=== PATIENT | male | born 1985 | race Caucasian/White ===

== ENCOUNTER 2016-12-25 21:07 | Emergency (ER) | payer MEDICAID ==
[~2016-12-25] VITALS: Ht 175.3 cm; Wt 59.0 kg
[2016-12-25 21:39] VITALS: BP 145/77
== END 2016-12-25 23:12 | disposition home or self-care (01) ==
LOC: ER 21:07
DX: S00.81XA Abrasion of other part of head, initial encounter (principal); W10.9XXA Fall (on) (from) unspecified stairs and steps, initial encounter; Y93.89 Activity, other specified; Y92.89 Other specified places as the place of occurrence of the external cause; Y99.8 Other external cause status
CPT/HCPCS: 99283; A4606; Z7610; J3490